=== PATIENT | female | born 2005 | race Caucasian/White ===

== ENCOUNTER 2025-05-11 13:59 | Emergency (ER) | payer OTHER ==
[~2025-05-11] VITALS: Ht 154.9 cm; Wt 61.4 kg
[~2025-05-11 13:59] MED LIST: POLY119P3 PO
[2025-05-11 14:01] VITALS: TEMP 98.2
[2025-05-11 14:58] LABS: PLATELET COUNT (AUTO) 251 K/uL (150-450); RED BLOOD CELL COUNT(AUTO) 4.88 MIL/uL (4.00-5.20); RED CELL DISTRIBUTION WIDTH 16.1 % (11.5-14.5); WHITE BLOOD COUNT (AUTO) 6.0 K/uL (4.5-11.0)
[2025-05-11 15:07] LABS: CALCIUM, TOTAL 8.2 mg/dL (8.8-10.5); CREATININE 0.62 mg/dL (0.60-1.30); GLOMERULAR FILTR. RATE CALC > 60 mL/min (>60); GLUCOSE,RANDOM 99 mg/dL (70-110); SODIUM SERUM 140 mmol/L (136-145); UREA NITROGEN, BLOOD 8 mg/dL (7-18)
[2025-05-11 15:54] VITALS: BP 110/70; PULSE 80; RESP 16; O2SAT 99
== END 2025-05-11 15:59 | disposition home or self-care (01) ==
LOC: EMS 13:59
DX: R00.2 Palpitations (principal); R42 Dizziness and giddiness; Z79.899 Other long term (current) drug therapy
CPT/HCPCS: 80048; 83735; 84443; 84703; 85025; 93005; 99284